=== PATIENT | female | born 1960 | race African-American/Black ===

== ENCOUNTER 2019-04-02 19:46 | Emergency (ER) | payer OTHER ==
[~2019-04-02] VITALS: Ht 157.5 cm; Wt 117.9 kg
[2019-04-02 20:54] LABS: BASOPHILS 0.5 % (0.0-2.0); EOSINOPHILS 0.4 % (0.0-3.0); HEMATOCRIT 34.7 % (37.0-47.0); HEMOGLOBIN 10.8 gm/dL (12.0-15.0); LYMPHOCYTES 22.6 % (24.0-44.0); MCH 26.5 pg (26.0-34.0); MCHC 31.2 g/dL (28.0-37.0); MONOCYTES 7.5 % (1.0-8.0); PLATELET COUNT 228 thou/uL (150-400); RBC 4.08 mil/uL (4.20-5.00); RDW 15.5 % (10.5-14.5); WBC 7.2 thou/uL (4.0-11.0)
[2019-04-02 21:02] LABS: CALCIUM 9.7 mg/dL (8.5-10.1); CREATININE 1.1 mg/dL (0.6-1.0); POTASSIUM 3.5 mmol/L (3.5-5.1)
[2019-04-02 21:18] LABS: ALBUMIN 3.7 g/dL (3.4-5.0); TOTAL BILIRUBIN 0.4 mg/dL (<0.1-1.0); TOTAL PROTEIN 8.5 g/dL (6.4-8.2)
[2019-04-02] MEDS ORDERED: OMEPRAZOLE 20 M20 M1 PO (22:00)
[2019-04-02 22:07] VITALS: BP 170/77
[2019-04-02 22:14] LABS: URINE BILIRUBIN NEGATIVE (Negative); URINE BLOOD 2+ (Negative); URINE CLARITY SL CLOUDY; URINE COLOR YELLOW; URINE GLUCOSE-RANDOM* NEGATIVE (Negative); URINE KETONES TRACE (Negative); URINE LEUKOCYTES-REFLEX NEGATIVE (Negative); URINE PROTEIN (DIPSTICK) NEGATIVE (Negative); URINE UROBILINOGEN 0.2 E.U./dl (0.2-1.0)
[2019-04-02 22:17] LABS: URINE NITRITE-REFLEX POSITIVE (Negative)
[2019-04-02 22:22] LABS: CRYSTALS None Seen /LPF (None Seen); HYALINE CASTS 0-3 Few /LPF (None Seen); MUCUS 0-3 Light strn/LPF (None Seen); SQUAMOUS 4-10 Moderate /LPF (0-3); URINE WBC-REFLEX 0-5 Rare /HPF (0-5)
--- NOTE | 2019-04-03 09:50 | EKG ---
[address] [place] [address] ELECTROCARDIOGRAM REPORT Name: POLO SOMMER Room #: [facility]ITAL[id number] Admission: 04/02/19 Attend Phys: Discharge: 04/02/19 Date of : 58 Report #: [id number] THIS REPORT FOR: //name// [facility] ED Test Date: 2019-04-02 Test Time: 20:25:48 Pat Name: POLO SOMMER Department: Room: Gender: F [employer]: LOUIE : 1960 Requested By: Mary Lemon Order Number: [id number] MD: Abebe Mittal Measurements Intervals [place] Rate: 57 P: 82 [place]: 206 QRS: 56 QRSD: 98 T: 46 QT: 426 QTc: 415 Interpretive Statements Sinus bradycardia Borderline prolonged [place] interval No previous ECG available for comparison Electronically Signed On 04-03-2019 9:50:39 [employer] by Abebe Mittal [email or web address] <ELECTRONICALLY SIGNED> By: Abebe Mittal MD, [facility] 04/03/19 0950 24 24 Abebe Mittal MD, FACC /EPI
== END 2019-04-02 22:26 | disposition home or self-care (01) ==
LOC: ER 19:46
PROVIDERS: Physician Assistant
DX: R10.11 Right upper quadrant pain (principal); R10.13 Epigastric pain; R42 Dizziness and giddiness; R11.10 Vomiting, unspecified; Z88.8 Allergy status to other drugs, medicaments and biological substances; Z90.49 Acquired absence of other specified parts of digestive tract